=== PATIENT | male | born 1950 | race Caucasian/White ===

== ENCOUNTER → 2016-05-08 | Outpatient (CLI) | payer MEDICARE, OTHER | END | disposition home or self-care (01) | LOC: PCVCCLINIC 11:30 | PROVIDERS: ATTEND Internal Medicine Cardiovascular Disease | DX: I42.9 Cardiomyopathy, unspecified (principal); E78.00 Pure hypercholesterolemia, unspecified; R07.9 Chest pain, unspecified; R06.09 Other forms of dyspnea; I44.7 Left bundle-branch block, unspecified; R53.83 Other fatigue; I50.20 Unspecified systolic (congestive) heart failure; I51.7 Cardiomegaly; Z86.79 Personal history of other diseases of the circulatory system; Z95.810 Presence of automatic (implantable) cardiac defibrillator | CPT/HCPCS: 80061; 93005; G0463 ==

== ENCOUNTER → 2016-08-20 | Outpatient (CLI) | payer MEDICARE, OTHER ==
--- NOTE | 2016-08-20 17:17 | PCVCIMAG ---
APPROVED REPORT Study performed: 08/20/2016 10:15:33 EXAM: Comprehensive 2D, Doppler, and color-flow Echocardiogram Patient Location: Echo lab Status: routine Other Information Study Quality: Good Indications Dyspnea Cardiomyopathy Pacemaker Hyperlipidemia 2D Dimensions IVSd: 11.32 (7-11mm)LVOT Diam: 23.24 (18-24mm) LVDd: 54.50 mm PWd: 13.54 (7-11mm)Ascending Ao: 35.91 (22-36mm) LVDs: 42.52 (25-40mm) Left Atrium: 36.30 (27-40mm) Aortic Root: 26.69 mm LV Single Plane 4CH: 46.26 % LV Single Plane 2CH: 64.67 %Fink's LVEF: 55.47 % Biplane EF: 47.0 % Volumes Left Atrial Volume (Systole) Single Plane 4CH: 55.89 mLSingle Plane 2CH: 28.82 mL LA ESV Index: 20.00 mL/m2 Aortic Valve AoV Peak David.: 1.68 m/s AO Peak Gr.: 11.30 mmHgLVOT Max P.08 mmHg LVOT Max V: 1.13 m/s DENISE Vmax: 2.84 cm2 Mitral Valve E/A Ratio: 0.9 MV Decel. Time: 305.23 ms MV E Max David.: 0.88 m/s MV A David.: 0.99 m/s IVRT: 103.81 ms TDI E/Lateral E': 0.13E/Medial E': 0.15 Medial E' David.: 6.00 m/s Lateral E' David.: 7.00 m/s Pulmonary Valve PV Peak Gr.: 2.51 mmHg Pulmonary Vein P Vein S: 0.59 m/sP Vein A: 0.41 m/s P Vein D: 0.37 m/sP Vein A Dur.: 69.2 msec P Vein S/D Ratio: 1.59 Left Ventricle The left ventricle is normal size. There is normal LV segmental wall motion. Mild concentric left ventricular hypertrophy. Left ventricular systolic function is decreased. LVEF is 45-50%. Grade I - abnormal relaxation pattern. Right Ventricle Pacemaker lead is present in the right ventricle. The right ventricular systolic function is normal. Atria The left atrium size is normal. Pacemaker lead is present in the right atrium. Aortic Valve The aortic valve is normal in structure. No aortic regurgitation is present. There is no aortic valvular stenosis. Mitral Valve The mitral valve is normal in structure. Trace mitral regurgitation. No evidence of mitral valve stenosis. Tricuspid Valve The tricuspid valve is normal in structure. Trace tricuspid regurgitation. Pulmonic Valve The pulmonary valve is normal in structure. Trace pulmonic regurgitation. Great Vessels The aortic root is normal in size. IVC is normal in size and collapses with >50% inspiration Pericardium There is no pericardial effusion. <Conclusion> The left ventricle is normal size. Mild concentric left ventricular hypertrophy. LVEF is 45-50%. Pacemaker lead is present in the right ventricle. The left atrium size is normal. Pacemaker lead is present in the right atrium. The aortic valve is normal in structure. Trace mitral regurgitation. There is no pericardial effusion. Trace tricuspid regurgitation.
== END | disposition home or self-care (01) ==
LOC: PCVCIMAG 10:02
PROVIDERS: ATTEND Internal Medicine Cardiovascular Disease
DX: I08.1 Rheumatic disorders of both mitral and tricuspid valves (principal); E78.5 Hyperlipidemia, unspecified; Z95.0 Presence of cardiac pacemaker
CPT/HCPCS: 93306

== ENCOUNTER → 2017-04-10 | Outpatient (CLI) | payer MEDICARE, OTHER | END | disposition home or self-care (01) | LOC: PCVCCLINIC 11:08 | DX: I42.8 Other cardiomyopathies (principal); E78.00 Pure hypercholesterolemia, unspecified; I44.7 Left bundle-branch block, unspecified; Z95.810 Presence of automatic (implantable) cardiac defibrillator; Z78.9 Other specified health status; Z79.899 Other long term (current) drug therapy | CPT/HCPCS: 93005; 93284; G0463 ==

== ENCOUNTER → 2018-04-14 | Outpatient (CLI) | payer MEDICARE, OTHER | END | disposition home or self-care (01) | LOC: PCVCCLINIC 10:49 | PROVIDERS: ATTEND Internal Medicine Cardiovascular Disease | DX: I42.8 Other cardiomyopathies (principal); E78.00 Pure hypercholesterolemia, unspecified; I50.9 Heart failure, unspecified; Z95.810 Presence of automatic (implantable) cardiac defibrillator | CPT/HCPCS: 36415; 80061; 93005; G0463 ==

== ENCOUNTER → 2018-05-21 | Outpatient (CLI) | payer MEDICARE, OTHER | END | disposition home or self-care (01) | LOC: PCVCCLINIC 14:00 | PROVIDERS: ATTEND Internal Medicine | DX: E78.00 Pure hypercholesterolemia, unspecified (principal) | CPT/HCPCS: 36415 ==